=== PATIENT | male | born 1975 | race Caucasian/White ===

== ENCOUNTER 2016-09-28 12:38 | Emergency (ER) | payer SELFPAY ==
--- NOTE | 2016-09-28 14:41 | RAD ---
HISTORY: Trauma, midline tenderness, upper back pain COMPARISONS: CT of the chest dated August 28, 2011 TECHNIQUE: Multiple contiguous axial CT scans were obtained of the thoracic spine without intravenous contrast, with coronal and sagittal multiplanar reformations. FINDINGS: SPINAL CANAL: Evaluation of the central canal is limited on CT technique; however, there is no obvious canalicular mass or epidural hemorrhage. ALIGNMENT: The alignment is normal. VERTEBRAL BODIES: The vertebral bodies are preserved in height. The bones are normal in attenuation. JOINTS: Unremarkable MUSCULATURE: Normal INTERVERTEBRAL DISCS: There is mild diffuse loss of intervertebral disc height throughout the spine. AXIAL IMAGES: There is no osseous central canal stenosis or neuroforaminal narrowing. SOFT TISSUES: The visualized soft tissues of the chest and abdomen are unremarkable. There is minimal ossification of the interspinous ligament OTHER: None IMPRESSION: NO ACUTE OSSEOUS INJURY TO THE THORACIC SPINE
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
[2016-09-28 15:34] VITALS: BP 133/87
== END 2016-09-28 15:33 | disposition home or self-care (01) ==
LOC: UCEAST 12:38
DX: S16.1XXA Strain of muscle, fascia and tendon at neck level, initial encounter (principal); S10.93XA Contusion of unspecified part of neck, initial encounter; S06.0X0A Concussion without loss of consciousness, initial encounter; W20.8XXA Other cause of strike by thrown, projected or falling object, initial encounter; Y93.89 Activity, other specified; Y92.89 Other specified places as the place of occurrence of the external cause; Y99.0 Civilian activity done for income or pay; R11.0 Nausea; M47.812 Spondylosis without myelopathy or radiculopathy, cervical region; Z88.0 Allergy status to penicillin
CPT/HCPCS: 72125; 72128; 99213; G0463

== ENCOUNTER 2018-08-23 08:46 | Emergency (ER) | payer OTHER ==
[2018-08-23] MEDS ORDERED: Acetaminophen TAB* 325 MG PO ONE (09:27)
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
[2018-08-23 10:18] VITALS: BP 123/83
== END 2018-08-23 10:20 | disposition home or self-care (01) ==
LOC: UCEAST 08:46
DX: T58.8X1A Toxic effect of carbon monoxide from other source, accidental (unintentional), initial encounter (principal); R51 Headache; R11.0 Nausea; Y92.811 Bus as the place of occurrence of the external cause; Z88.0 Allergy status to penicillin
CPT/HCPCS: 99212; A9270-GY; G0463

== ENCOUNTER 2018-12-06 07:37 | Emergency (ER) | payer BC, OTHER ==
[2018-12-06 07:55] VITALS: BP 121/83
--- NOTE | 2018-12-06 08:13 | UC ---
General HPI - HPI Summary HPI Summary: States eyes felt dry yesterday and he went and rinsed eyes out in the sink. This AM woke and his eyes were blood shot, red and very itchy. Mild drainage from both eyes. No vision changes. Put visine drops in them and it did help some but still bloodshot and stingning. No allergy symptoms. STates his mother and sister both get dry eye. Meds: Reviewed - History of Current Complaint Chief Complaint: UCEye Stated Complaint: EYE ISSUE Time Seen by Provider: 12/06/18 07:49 Pain Intensity: 0 - Allergy/Home Medications Allergies/Adverse Reactions: Allergies Allergy/AdvReac Type Severity Reaction Status Date / Time amoxicillin Allergy GI Upset Verified 12/06/18 07:56 Home Medications: Home Medications Wild Lettuce 1 tab 12/06/18 [History] PMH/Surg Hx/FS Hx/Imm Hx Previously Healthy: Yes Other History Of: Negative For: Anticoagulant Therapy - Surgical History Surgical History: Yes Surgery Procedure, Year, and Place: UMBILICAL HERNIA REPAIR. 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, only occ in college - Immunization History Most Recent Tetanus Shot: UTD per pt Review of Systems All Other Systems Reviewed And Are Negative: Yes Physical Exam Triage Information Reviewed: Yes Vital Signs: Initial Vital Signs Temp 98.0 F 12/06/18 07:49 Pulse 68 12/06/18 07:49 Resp 18 12/06/18 07:49 BP 121/83 12/06/18 07:49 Pulse Ox 98 12/06/18 07:49 Vital Signs Reviewed: Yes Eyes: Positive: Conjunctiva Inflamed ENT: Positive: Normal ENT inspection Neck: Positive: Supple, Nontender Respiratory: Positive: Lungs clear Cardiovascular: Positive: RRR, No Murmur Course/Dx - Course Course Of Treatment: This is a 43 yr old with b/l red itchy eyes Assessment Conjunctivitis with dry eye Plan Recommend antibiotic eyedrops as directed Can contine artifical tears as needed as directed If symptoms persist or worsen, recommend follow up with PCP, eye doctor or return to urgent care - Diagnoses Provider Diagnosis: Conjunctivitis Discharge - Sign-Out/Discharge Documenting (check all that apply): Patient Departure All imaging exams completed and their final reports reviewed: No Studies - Discharge Plan Condition: Good Disposition: HOME Prescriptions: Polymyx/Trimethoprim OPTH* [Polytrim OPHTH*] 2 drop BOTH EYES TID #1 btl Patient Education Materials: Conjunctivitis (ED) Forms: *Work Release Referrals: Oseas Maria MD [Primary Care Provider] - Additional Instructions: Recommend antibiotic eyedrops as directed Can contine artifical tears as needed as directed If symptoms persist or worsen, recommend follow up with PCP, eye doctor or return to urgent care - Billing Disposition and Condition Condition: GOOD Disposition: Home
== END 2018-12-06 08:10 | disposition home or self-care (01) ==
LOC: UCEAST 07:37
DX: H10.9 Unspecified conjunctivitis (principal)
CPT/HCPCS: 99212; G0463

== ENCOUNTER 2019-07-26 11:41 | Emergency (ER) | payer SELFPAY ==
[2019-07-26] MEDS ORDERED: Aspirin 81 mg CHEW TAB* 81 MG TAB.CHEW PO ONE (12:00)
[2019-07-26 12:03] VITALS: BP 142/87
--- NOTE | 2019-07-26 12:13 | UC ---
General HPI - HPI Summary HPI Summary: Sudden onset shortness of breath, pleuritic pain, dizzy and presyncopal. 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 He is now very anxious. CHest pain has resolved. STill feels short of breath. No nausea or diaphoresis. States he took a baby ASA. No smoking. NO recent travel. NO PMHx - states he is very healthy Meds reviewed - History of Current Complaint Chief Complaint: UCChestPain Stated Complaint: DIZZY,SOB,CHEST PAIN Time Seen by Provider: 07/26/19 11:49 Pain Intensity: 0 - Allergy/Home Medications Allergies/Adverse Reactions: Allergies Allergy/AdvReac Type Severity Reaction Status Date / Time amoxicillin Allergy GI Upset Verified 07/26/19 12:02 Home Medications: Home Medications Aspirin 1 tab PO ONCE PRN 07/26/19 [History Confirmed 07/26/19] Hemp Seeds 1 tab PO ONCE 07/26/19 [History Confirmed 07/26/19] PMH/Surg Hx/FS Hx/Imm Hx Previously Healthy: Yes Other History Of: Negative For: Anticoagulant Therapy - Surgical History Surgical History: Yes Surgery Procedure, Year, and Place: UMBILICAL HERNIA REPAIR. 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, only occ in college - Immunization History Most Recent Tetanus Shot: UTD per pt Review of Systems All Other Systems Reviewed And Are Negative: Yes Respiratory: Positive: Shortness Of Breath Cardiovascular: Positive: Chest Pain Physical Exam Triage Information Reviewed: Yes Appearance: Other: - mild respiratory distress, mildly ill appearing Vital Signs: Initial Vital Signs Temp 97.6 F 07/26/19 11:58 Pulse 87 07/26/19 11:58 Resp 22 07/26/19 11:58 BP 142/87 07/26/19 11:58 Pulse Ox 100 07/26/19 11:58 Vital Signs Reviewed: Yes ENT: Positive: Normal ENT inspection Neck: Positive: Supple, Nontender Respiratory: Positive: Other: - mild tachypnea, decreased breath sounds, clear Cardiovascular: Positive: No Murmur, Tachycardia Abdomen Description: Positive: Nontender, Soft Musculoskeletal: Positive: Other: - RLE larger than LLE - good pulses. No calf tenderness Course/Dx - Course Course Of Treatment: This is a 44 yr old with no PMHx acute onset of SOB, dizziness and pleuritic pain EKG: early repol with nonspecific ST changes Concern for PE or cardiac event such as NSTEMI. REcommended patient go by EMS [place] [facility] [place] patient declined states he has no insurance. His resident care supervisor is here and has agreed to drive him directly to the ER Sign out given to Dr. Sandra Patient has had a total of ASA 324 mg this morning. Plan Patient given 243 mg of Aspirin (in addition to the ASA 81 mg that he took already) Recommend going directly to the emergency room for further evaluation - concern for a blood clot in your lungs - Diagnoses Provider Diagnosis: Shortness of breath Discharge ED - Sign-Out/Discharge Documenting (check all that apply): Patient Departure All imaging exams completed and their final reports reviewed: No Studies - Discharge Plan Condition: Fair Disposition: HOME-RECOMMEND TO ED Referrals: Oseas Maria MD [Primary Care Provider] - Additional Instructions: Patient given 243 mg of Aspirin (in addition to the ASA 81 mg that he took already) Recommend going directly to the emergency room for further evaluation - concern for a blood clot in your lungs - Billing Disposition and Condition Condition: FAIR Disposition: Home-Recommend to ED
== END 2019-07-26 12:17 | disposition home health service (06) ==
LOC: UCEAST 11:41
DX: R06.02 Shortness of breath (principal); R07.9 Chest pain, unspecified; Z88.0 Allergy status to penicillin
CPT/HCPCS: 93005; 99212; A9270-GY; G0463

== ENCOUNTER 2019-07-26 12:22 | Emergency (ER) | payer SELFPAY ==
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
[2019-07-26 14:42] LABS: ABS Lymphocytes 1.9 10^3/ul (1.0-4.8); ABS Monocytes 0.5 10^3/ul (0-0.8); ABS Neutrophils 8.3 10^3/ul (1.5-7.7); Eosinophil % 0.3 %; Hematocrit 42 % (42-52); Hemoglobin 14.8 g/dL (14.0-18.0); Lymphocyte % 17.6 %; Mean Corpuscular HGB Conc 35 g/dL (31-36); Mean Corpuscular Hemoglobin 29 pg (27-31); Mean Corpuscular Volume 83 fL (80-94); Mean Platelet Volume 8.1 fL (7.4-10.4); Platelet Count 260 10^3/uL (150-450); Red Blood Count 5.07 10^6 /uL (4.18-5.48); Red Cell Distribution Width 13 % (10-15); White Blood Count 10.8 10^3/uL (3.5-10.8)
[2019-07-26 14:43] LABS: Albumin 4.7 g/dL (3.2-5.2); Albumin/Globulin Ratio 1.7 (1-3); BUN/Creatinine Ratio 13.6 (8-20); Calcium 9.7 mg/dL (8.6-10.3); EGFR African American 114.4 (>60); EGFR Non-African American 94.5 (>60); Globulin 2.7 g/dL (2-4); Potassium 3.5 mmol/L (3.5-5.0); Total Bilirubin 0.6 mg/dL (0.2-1.0); Total Protein 7.4 g/dL (6.4-8.9)
[2019-07-26 16:14] VITALS: BP 115/82
== END 2019-07-26 16:00 | disposition home or self-care (01) ==
LOC: ED 12:22
DX: R06.02 Shortness of breath (principal); Z88.0 Allergy status to penicillin
CPT/HCPCS: 36415; 71046; 80053; 84484; 85025; 85379; 93005; 99282